=== PATIENT | male | born 1995 | race American Indian/Alaskan Native ===

== ENCOUNTER 2017-04-28 04:55 | Emergency (ER) | payer SELFPAY ==
--- NOTE | 2017-04-28 06:12 | XRay Report ---
FINAL REPORT EXAM: XR CHEST ROUTINE 2V HISTORY: luma , hemoptysis, nasal congestion and productive cough TECHNIQUE: PA and lateral chest radiographs PRIORS: None. FINDINGS: No mediastinal shift. Cardiac silhouette is not enlarged. No pneumothorax, effusion, or focal pulmonary opacity. No acute skeletal finding. IMPRESSION: No acute pulmonary finding.
[2017-04-28 07:48] VITALS: BP 133/70
--- NOTE | 2017-04-28 07:50 | Emergency Department Report ---
HPI - General Chief Complaint: Upper Respiratory Infection Time Seen by Provider: 04/28/17 07:40 - HPI HPI: This is a 21-year-old male with a history of asthma presents to ED complaining of worsening yellow/brownish productive cough 3 days. Patient states cough is gotten progressively worsening intermittent throughout the day. Patient states he is coughing so much that his chest hurts every time he coughs. Patient denies any fever/chills/nausea vomiting/shortness of breath/headaches/dizziness. ED Past Medical Hx - Past Medical History Previous Medical History?: Yes Hx Psychiatric Treatment: Yes (Schizo bipolar) Hx Asthma: Yes - Surgical History Past Surgical History?: Yes Additional Surgical History: Hernia repair - Social History Smoking Status: Current Every Day Smoker Substance Use Type: Alcohol - Medications Home Medications: Home Medications Medication Instructions Recorded Confirmed Last Taken Type Albuterol Sulfate [Ventolin HFA] 2 puff IH Q4H PRN #1 hfa.aer.ad 01/26/1503/09/15 Rx Escitalopram Oxalate [Lexapro] 5 mg PO QDAY 03/09/15 03/09/15 Unknown History Albuterol Sulfate [Ventolin HFA] 2 puff IH Q4H PRN #1 hfa.aer.ad 03/19/15 Unknown Rx Ciprofloxacin HCl [Ciprofloxacin 500 mg PO Q12HR #14 tab 03/19/15 Unknown Rx TAB] Albuterol Sulfate [Albuterol 0.63% 0.63 mg IH Q4H PRN #25 neb 04/28/17 Unknown Rx NEBS] Azithromycin [Zithromax TAB] 250 mg PO QDAY #4 tablet 04/28/17 Unknown Rx Promethazine /Codeine 5 ml PO Q6H PRN #100 ml 04/28/17 Unknown Rx [Phenergan/Codeine 6.25-10 mg/5 ml] predniSONE [Deltasone] 20 mg PO BID #10 tab 04/28/17 Unknown Rx ED Review of Systems ROS: Stated complaint: CHEST PAIN Other details as noted in HPI Constitutional: denies: chills, fever Eyes: denies: eye pain, eye discharge, vision change ENT: denies: ear pain, throat pain Respiratory: denies: cough, shortness of breath, wheezing Cardiovascular: denies: chest pain, palpitations Endocrine: no symptoms reported Gastrointestinal: denies: abdominal pain, nausea, diarrhea Genitourinary: denies: urgency, dysuria Musculoskeletal: denies: back pain, joint swelling, arthralgia Skin: denies: rash, lesions Neurological: denies: headache, weakness, paresthesias Psychiatric: denies: anxiety, depression Hematological/Lymphatic: denies: easy bleeding, easy bruising Physical Exam - Physical Exam Vital Signs: Vital Signs 04/28/17 05:00 Temperature 98.1 F Pulse Rate 91 H Respiratory 18 Rate Blood Pressure 122/66 O2 Sat by Pulse 96 Oximetry Physical Exam: GENERAL: Alert and oriented x3, no apparent distress, Normal Gait, atraumatic. HEAD: Head is normocephalic and a-traumatic. EYES: Extra ocular muscles are intact. Pupils are equal, round, and reactive to light and accommodation.. EARS: symetrical, atraumatic, non tender, ear canal clear and moderate cerumen, tympanic membrance non inflamed. gross auditory nml bilaterally. NOSE: Nose symetrical, Nontender,Nares appeared normal. MOUTH:Mouth is well hydrated and without lesions. Tonsils nonerythematous or swollen, Uvula midline, Tongue not elevated. Mucous membranes are moist. Posterior pharynx clear, no exudate or lesions. Patent airways. NECK: Supple. Non edematous, No lymphadenopathy or thyromegaly. No C-spine tenderness, no use of retirement actuary muscles LUNGS: Symetrical with respiration, lower lung base wheezing laterally, no rales or crackles. HEART: S1, S2 present, regular rate and rhythm without murmur, no rubs, no gallops. Non tender to palpation ABDOMEN: No organomegaly was noted,Positive bowel sounds, soft, and non- distended. . Nontender to palpation on all Quadrants, NO CVA tenderness. BACK: Full range of motion, no spinal tenderness, nontender to palpation. SKIN: Warm and dry, No lesions, No ulceration or induration present. ED Course Vital Signs 04/28/17 05:00 Temperature 98.1 F Pulse Rate 91 H Respiratory 18 Rate Blood Pressure 122/66 O2 Sat by Pulse 96 Oximetry ED Medical Decision Making - Radiology Data Radiology results: report reviewed, image reviewed FINAL REPORT EXAM: XR CHEST ROUTINE 2V HISTORY: luma , hemoptysis, nasal congestion and productive cough TECHNIQUE: PA and lateral chest radiographs PRIORS: None. FINDINGS: No mediastinal shift. Cardiac silhouette is not enlarged. No pneumothorax, effusion, or focal pulmonary opacity. No acute skeletal finding. IMPRESSION: No acute pulmonary finding. Transcribed By: MB Dictated By: ERICA CAPONE MD Electronically Authenticated By: ERICA CAPONE MD Signed Date/Time: 04/28/17 0209 - Medical Decision Making 21-year-old male presents with URI bronchitis ED course: EKG and chest x-ray ordered, EKG normal, x-ray normal findings see above Patient received Ventolin neb as respiratory treatment, 125 Solu-Medrol and Tylenol with Codeine in the ED, he also received first dose of azithromycin ED Patient will be discharged with continued dose of azithromycin couple of days of prednisone in the refill on albuterol nebulizer. Discussed with patient to follow up with primary care physician in 3-5 days. Discussed less than symptoms or new symptoms arise patient should return to ED immediately. Vital signs are normal. Patient is satting at 98 on room air Patient is in no acute or respiratory distress. Critical care attestation.: If time is entered above; I have spent that time in minutes in the direct care of this critically ill patient, excluding procedure time. ED Disposition Clinical Impression: URI with cough and congestion Disposition: DC-01 TO HOME OR SELFCARE Is pt being admited?: No Does the pt Need Aspirin: No Condition: Stable Instructions: Asthma (ED), Upper Respiratory Infection (ED), Chronic Bronchitis (ED) Additional Instructions: Follow-up with primary care physician as referred. Return to ED if any new symptoms or worsening symptoms. Take your medication as prescribed Prescriptions: Albuterol Sulfate [Albuterol 0.63% NEBS] 0.63 mg IH Q4H PRN #25 neb PRN Reason: Shortness Of Breath Azithromycin [Zithromax TAB] 250 mg PO QDAY #4 tablet predniSONE [Deltasone] 20 mg PO BID #10 tab Promethazine /Codeine [Phenergan/Codeine 6.25-10 mg/5 ml] 5 ml PO Q6H PRN #100 ml PRN Reason: cough Referrals: PRIMARY CARE, [Primary Care Provider] - 3-5 Days [facility] [Outside] - 3-5 Days [facility] [Outside] - 3-5 Days [facility] [Outside] - 3-5 Days Forms: Accompanied Note, Work/School Release Form(ED) Time of Disposition: 08:45
[2017-04-28] MEDS ORDERED: TYLENOL/CODEINE PO ONE (08:03)
[2017-04-28] MEDS ORDERED: DUONEB *Not for PRN Use IH ONE (08:03)
[2017-04-28] MEDS ORDERED: ZITHROMAX PO ONE (08:03)
== END 2017-04-28 09:08 | disposition home or self-care (01) ==
LOC: ED 04:55
DX: J06.9 Acute upper respiratory infection, unspecified (principal); F31.9 Bipolar disorder, unspecified; F20.9 Schizophrenia, unspecified; F17.200 Nicotine dependence, unspecified, uncomplicated; J45.909 Unspecified asthma, uncomplicated
CPT/HCPCS: 71020; 93005; 93010; 94640; 96372; 99283; J2930

== ENCOUNTER 2019-09-05 09:23 | Outpatient (CLI) | payer OTHER ==
[2019-09-05] MEDS ORDERED: ALBUTEROL 2.5 MG/3 ML NEBU IH ONE (10:19)
== END 2019-09-05 09:24 | disposition home or self-care (01) ==
LOC: PF 09:23
PROVIDERS: ATTEND Internal Medicine
DX: J45.909 Unspecified asthma, uncomplicated (principal); F20.9 Schizophrenia, unspecified
CPT/HCPCS: 94060; 94640